=== PATIENT | male | born 1980 | race Caucasian/White ===

== ENCOUNTER 2018-01-24 23:27 | Emergency (ER) | payer OTHER ==
[~2018-01-24] VITALS: Ht 164.5 cm; Wt 109.1 kg
[~2018-01-24 23:27] MED LIST: ATOR20TA86 PO; BENZ2TAB58 PO; METF500T PO; OLAN5TAB40 PO; TERA5CAP12 PO
[2018-01-25 00:14] LABS: GLUCOSE,POINT OF CARE 250 MG/DL (70-110)
[2018-01-25 02:58] LABS: APPEARANCE,URINE CLEAR (CLEAR); BILIRUBIN,URINE NEGATIVE (NEGATIVE); GLUCOSE, URINE (UA) 100 mg/dL (NEGATIVE); KETONES,URINE NEGATIVE (NEGATIVE); LEUKOCYTE ESTERASE ,URINE NEGATIVE (NEGATIVE); NITRATE,URINE NEGATIVE (NEGATIVE); OCCULT BLOOD,URINE NEGATIVE (NEGATIVE); PROTEIN,URINE NEGATIVE (NEGATIVE); UROBILINOGEN,URINE 0.2 mg/dL (<=1.0)
[2018-01-25 03:32] LABS: BACTERIA,URINE None Seen /HPF (None Seen); RBC,URINE 0-2 /HPF (0-2); WBC,URINE 0-2 /HPF (0-5)
[2018-01-25 03:33] LABS: SQUAMOUS EPITHELIAL CELL,UR Few /LPF (None Seen)
[2018-01-25] MEDS ORDERED: IBUPROFEN 600 MG TABLET ONE (03:57)
[2018-01-25] MEDS ORDERED: IBUPROFEN 600 MG TABLET PO ONE (04:00)
[2018-01-25 04:10] VITALS: BP 140/98
== END 2018-01-25 04:40 | disposition home or self-care (01) ==
LOC: EMS 23:27
DX: M16.11 Unilateral primary osteoarthritis, right hip (principal); F17.210 Nicotine dependence, cigarettes, uncomplicated; F31.9 Bipolar disorder, unspecified; E11.9 Type 2 diabetes mellitus without complications; F20.9 Schizophrenia, unspecified; Z79.84 Long term (current) use of oral hypoglycemic drugs; Z79.899 Other long term (current) drug therapy
CPT/HCPCS: 73502